=== PATIENT | male | born 1975 | race African-American/Black ===

== ENCOUNTER 2016-05-08 08:29 | Emergency (ER) | payer MEDICARE ==
[2016-05-08 10:50] LABS: BASOPHILS 0.4 % (0.0-2.0); EOSINOPHILS 4.1 % (0-7); HEMATOCRIT 32.1 % (42.0-54.0); HEMOGLOBIN 10.8 g/dL (13.5-17.5); IMMATURE GRANULOCYTES 0.3 % (0-5); LYMPHOCYTES 18.1 % (15-50); MCHC 33.6 g/dL (31.0-37.0); MCV 86.3 fL (80.0-100.0); MEAN PLATELET VOLUME 10.2 fL (7.4-10.4); MONOCYTES 7.6 % (2-11); NEUTROPHILS 69.5 % (40-80); PLATELET COUNT 165 10x3/uL (130-400); RBC 3.72 10x6/uL (4.20-6.10); RDW 13.4 % (11.5-14.5); WBC 7.6 10x3/uL (4.8-10.8)
[2016-05-08 11:13] LABS: ALBUMIN 3.9 g/dL (3.4-5.0); ALKALINE PHOSPHATASE 183 U/L (46-116); ALT (SGPT) 21 U/L (10-68); BILIRUBIN - TOTAL 0.38 mg/dL (0.2-1.3); CALC OSMOLALITY 287 mosm/kg (275-300); CALCIUM 8.3 mg/dL (8.5-10.1); CARBON DIOXIDE 29.8 mmol/L (21.0-32.0); CHLORIDE - SERUM 103 mmol/L (98-107); CREATININE - SERUM 7.5 mg/dL (0.6-1.3); GLUCOSE 103 mg/dL (74-106); POTASSIUM - SERUM 3.8 mmol/L (3.5-5.1); SODIUM 143 mmol/L (136-145); UREA NITROGEN 21 mg/dL (7-18); eGFR NON AFRICAN AMERICAN 8 mL/min (90-120)
[2016-05-08 11:35] LABS: CREATINE KINASE 462 UL (21-232); MAGNESIUM - SERUM 2.3 mg/dL (1.8-2.4); PRO BNP 21204 pg/mL (0-125)
[2016-05-08 11:38] LABS: CKMB 2.5 U/L (0.0-3.6); TROPONIN-I 0.102 ng/mL (0.000-0.060)
== END 2016-05-08 13:00 | disposition home or self-care (01) ==
LOC: D.ER 08:29
PROVIDERS: Emergency Medicine
DX: J20.9 Acute bronchitis, unspecified (principal); E87.70 Fluid overload, unspecified; D64.9 Anemia, unspecified; I12.9 Hypertensive chronic kidney disease with stage 1 through stage 4 chronic kidney disease, or unspecified chronic kidney disease; N18.9 Chronic kidney disease, unspecified; I50.9 Heart failure, unspecified; G25.81 Restless legs syndrome; Z99.2 Dependence on renal dialysis; I44.60 Unspecified fascicular block

== ENCOUNTER 2018-03-19 11:00 | Inpatient (IN) | payer MEDICARE ==
[~2018-03-19] VITALS: Ht 177.8 cm; Wt 130.0 kg
[2018-03-19 11:44] LABS: BASOPHILS 0.1 % (0-2); EOSINOPHILS 1.6 % (0-7); HEMATOCRIT 23.4 % (42.0-54.0); IMMATURE GRANULOCYTES 0.4 % (0-5); LYMPHOCYTES 13.2 % (15-50); MCH 29.1 pg (26.0-34.0); MCHC 34.2 g/dL (31.0-37.0); MCV 85.1 fL (80.0-100.0); MEAN PLATELET VOLUME 10.3 fL (7.4-10.4); MONOCYTES 10.9 % (2-11); NEUTROPHILS 73.8 % (40-80); RBC 2.75 10x6/uL (4.20-6.10); RDW 13.6 % (11.5-14.5); WBC 7.4 10x3/uL (4.8-10.8)
[2018-03-19 11:48] LABS: PLATELET COUNT 122 10x3/uL (130-400)
[2018-03-19 11:56] LABS: ALBUMIN 3.5 g/dL (3.4-5.0); ALKALINE PHOSPHATASE 104 U/L (46-116); ALT (SGPT) 27 U/L (10-68); CALC OSMOLALITY 300 mosm/kg (275-300); CALCIUM 8.8 mg/dL (8.5-10.1); CARBON DIOXIDE 26.6 mmol/L (21.0-32.0); CHLORIDE - SERUM 101 mmol/L (98-107); CREATININE - SERUM 13.5 mg/dL (0.6-1.3); GLUCOSE 102 mg/dL (74-106); POTASSIUM - SERUM 3.8 mmol/L (3.5-5.1); PROTEIN - SERUM 7.2 g/dL (6.4-8.2); SODIUM 143 mmol/L (136-145); UREA NITROGEN 58 mg/dL (7-18); eGFR NON AFRICAN AMERICAN 4 mL/min (90-120)
[2018-03-19] MEDS ORDERED: NORVASC10 MG PO (11:56)
[2018-03-19] MEDS ORDERED: FAMOTIDINE10 MG PO (11:56)
[2018-03-19] MEDS ORDERED: GABAPENTIN100 MG PO (11:56)
[2018-03-19] MEDS ORDERED: PROTONIX40 MG PO (11:57)
[2018-03-19 12:19] LABS: CREATINE KINASE 937 UL (21-232)
[2018-03-19 12:20] LABS: TROPONIN-I 0.141 ng/mL (0.000-0.060)
[2018-03-19 12:36] LABS: PRO BNP 91384 pg/mL (0-125)
[2018-03-19] MEDS ORDERED: LASIX40 MG PO (12:58)
[2018-03-19] MEDS ORDERED: LONITEN10 MG PO (12:58)
[2018-03-19 13:00] VITALS: BP 138/87
[2018-03-19 20:00] VITALS: BP 167/91
[2018-03-20] VITALS: BP 115/93
[2018-03-20 00:21] VITALS: BP 167/91; BMI 38.8
[2018-03-20 04:00] VITALS: BP 124/70
[2018-03-20 07:40] LABS: % SATURATION 14 % (15-55); IRON 27 ug/dl (35-150); TOTAL IRON BIND CAPACITY 191 ug/dl (260-445); UNSAT IRON BIND CAPACITY 164 ug/dl (150-375)
[2018-03-20 14:15] VITALS: BMI 41.1
[2018-03-20 14:36] VITALS: Ht 177.8 cm; Wt 130.0 kg
[2018-03-20 16:08] VITALS: BP 136/79
--- NOTE | 2018-03-20 17:08 | MORECARE ---
CASE MANAGEMENT DISCHARGE SUMMARY PATIENT: CYRUS SHIN UNIT: [id number] ADM DATE: 03/19/18 AGE: 42 : [birth year] SEX: M ROOM/BED: D.2104 AUTHOR: RAFAT MURO PHYSICIAN: REFERRING PHYSICIAN: BRICE LUIS MD DATE OF SERVICE: 03/20/18 Discharge Plan Patient Name: CYRUS SHIN Facility: [facility]:[place] : 1975 Planned Disposition: Home Anticipated Discharge Date: 03/20/18 Discharge Date: Expected LOS: 1 Initial Reviewer: [email or web address] Initial Review Date: 03/20/2018 Generated: 03/20/18 6:08 pm DCPIA - Discharge Planning Initial Assessment Updated by [email or web address]: Jesus Knapp on 03/20/18 5:02 pm * Is the patient Alert and Oriented? Yes * How many steps to enter\exit or inside your home? * PCP DR. EDUARD VASQUES [place] * Pharmacy [facility] IN [place] * Preadmission Environment Home with Family * ADLs Independent * Equipment None * Other Equipment NO MEDICAL EQUIPMENT PROVIDER PREFERENCE * List name and contact numbers for known caregivers / representatives who currently or will assist patient after discharge: MATILDA CARBAJAL, MOTHER, BEV SHIN, SPOUSE, * Verbal permission to speak to the caregivers and representatives has been obtained from the patient. Yes * Community resources currently utilized None * Please name any agencies selected above. NONE * Additional services required to return to the preadmission environment? No * Can the patient safely return to the preadmission environment? Yes * Has this patient been hospitalized within the prior 30 days at any hospital? No Patient Name: CYRUS SHIN Page [id number] at 1708 All edits/amendments must be made on the electronic document DICTATION DATE: 03/20/181706 TAIL RIPPER: MOY 03/20/181706 RPT#: [id number] DC DATE: STATUS: ADM IN [facility] [address] [place] [address] END OF REPORT
--- NOTE | 2018-03-20 17:26 | MORECARE ---
CASE MANAGEMENT DISCHARGE SUMMARY PATIENT: CYRUS SHIN UNIT: [id number] ADM DATE: 03/19/18 AGE: 42 : 73 SEX: M ROOM/BED: D.2104 AUTHOR: JINA,DOC PHYSICIAN: REFERRING PHYSICIAN: BRICE LUIS MD DATE OF SERVICE: 03/20/18 Discharge Plan Patient Name: CYRUS SHIN Facility: [facility]:[place] : 1975 Planned Disposition: Home Anticipated Discharge Date: 03/20/18 Discharge Date: Expected LOS: 1 Initial Reviewer: [email or web address] Initial Review Date: 03/20/2018 Generated: 03/20/18 6:25 pm Comments DCP- Discharge Planning Updated by [email or web address]: Jesus Knapp on 03/20/18 4:[address] Patient Name: CYRUS SHIN Admission Status: ER Accout number: [id number] Admission Date: 03-19-2018 : 1975 Admission Diagnosis: Attending: BRICE LUIS Current LOS: 1 Anticipated DC Date: 03-20-2018 Planned Disposition: Home Primary Insurance: MEDICARE A & B Discharge Planning Comments: CM MET WITH PT IN ROOM TO DISCUSS DISCHARGE PLANNING AND NEEDS. PT REPORTS LIVING AT HOME INDEPENDENTLY WITH SPOUSE. PT HAS NO MEDICAL EQUIPMENT AND NO OUTSIDE SERVICES ASSISTING IN THE HOME. CM DISCUSSED AVAILABILITY OF HOME HEALTH, REHAB SERVICES AND MEDICAL EQUIPMENT. PT DENIES DISCHARGE NEEDS, REPORTS HIS WILL PICK HIM UP FOR DISCHARGE HOME. PRESCRIPTION EYEGLASS MAKER NURSE NOTIFIED. Medical Collections Representative: Jesus Knapp DCPIA - Discharge Planning Initial Assessment Updated by [email or web address]: Jesus Knapp on 03/20/18 5:02 pm * Is the patient Alert and Oriented? Yes * How many steps to enter\exit or inside your home? * PCP DR. EDUARD VASQUES [place] * Pharmacy [facility] IN [place] * Preadmission Environment Home with Family * ADLs Independent * Equipment None * Other Equipment NO MEDICAL EQUIPMENT PROVIDER PREFERENCE * List name and contact numbers for known caregivers / representatives who currently or will assist patient after discharge: MATILDA CARBAJAL, MOTHER, BEV SHIN, SPOUSE, * Verbal permission to speak to the caregivers and representatives has been obtained from the patient. Yes * Community resources currently utilized None * Please name any agencies selected above. NONE * Additional services required to return to the preadmission environment? No * Can the patient safely return to the preadmission environment? Yes * Has this patient been hospitalized within the prior 30 days at any hospital? No Last DP export: 03/20/18 4:08 pm Patient Name: CYRUS SHIN Page [id number] at 1726 All edits/amendments must be made on the electronic document DICTATION DATE: 03/20/181724 BLOOD BANK WORKER: MOY 03/20/181724 RPT#: [id number] DC DATE: STATUS: ADM IN [facility] [address] [place] [address] END OF REPORT
[2018-03-21 08:22] LABS: FOLATE (FOLIC ACID) - SERUM 5.4 ng/mL (>3.0)
== END 2018-03-20 17:31 | disposition home or self-care (01) | DRG 291 ==
LOC: D.ER 11:00 → D.M2 16:40 → D.EDHOLD 16:40 → D.M2 17:31
PROVIDERS: Family Medicine; Internal Medicine Nephrology; ADMIT Internal Medicine Nephrology
PROC: 5A1D70Z Performance of Urinary Filtration, Intermittent, Less than 6 Hours Per Day (ICD-10-PCS; principal; 2018-03-19)
DX: I13.2 Hypertensive heart and chronic kidney disease with heart failure and with stage 5 chronic kidney disease, or end stage renal disease (principal); N18.6 End stage renal disease; Z68.41 Body mass index [BMI] 40.0-44.9, adult; I50.9 Heart failure, unspecified; J44.9 Chronic obstructive pulmonary disease, unspecified; K21.9 Gastro-esophageal reflux disease without esophagitis; Z91.19 Patient's noncompliance with other medical treatment and regimen; G47.33 Obstructive sleep apnea (adult) (pediatric); E66.01 Morbid (severe) obesity due to excess calories

== ENCOUNTER → 2018-04-02 10:40 | Outpatient (CLI) | payer MEDICARE ==
[2018-03-20 14:36] VITALS: BMI 41.1
[~2018-04-02 10:40] MED LIST: FAMOTIDINE10 MG PO; GABAPENTIN100 MG PO; LASIX40 MG PO; LONITEN10 MG PO; NORVASC10 MG PO; PROTONIX40 MG PO
== END | disposition home or self-care (01) ==
LOC: D.RT 10:40
DX: G47.33 Obstructive sleep apnea (adult) (pediatric) (principal); R06.02 Shortness of breath; N18.6 End stage renal disease